=== PATIENT | male | born 1935 | race Caucasian/White ===

== ENCOUNTER 2021-09-07 19:27 | Emergency (ER) | payer MEDICARE ==
[2021-09-07 19:53] LABS: HEMOGLOBIN 13.5 gm/dl (14.0-17.5); RED BLOOD COUNT 4.18 M/UL (4.20-5.50); WHITE BLOOD COUNT 8.1 K/UL (4.5-11.0)
[2021-09-07 20:23] LABS: BUN/CREATININE RATIO 15 (0-10)
== END 2021-09-07 22:33 | disposition home or self-care (01) ==
LOC: ER1 19:27
PROVIDERS: Physician Assistant
DX: R42 Dizziness and giddiness (principal); S16.1XXA Strain of muscle, fascia and tendon at neck level, initial encounter; S20.221A Contusion of right back wall of thorax, initial encounter; I10 Essential (primary) hypertension; E10.9 Type 1 diabetes mellitus without complications; I48.91 Unspecified atrial fibrillation; W19.XXXA Unspecified fall, initial encounter
CPT/HCPCS: 70450; 71250; 72125; 72128; 80053; 82550; 82553; 82962; 83874; 84484; 85025; 93005; 99284